=== PATIENT | female | born 1980 | race Caucasian/White ===

== ENCOUNTER 2018-12-21 09:42 | Emergency (ER) | payer OTHER, MEDICAID ==
[~2018-12-21] VITALS: Ht 157.5 cm; Wt 58.5 kg
[~2018-12-21 09:42] MED LIST: IBUPROFEN 200200 M1 PO; ONDANSETRON HCL4 M2 PO; PERCOCET PO; TYLENOL325 MG PO
[2018-12-21 09:48] VITALS: BP 119/70
[2018-12-21 10:13] LABS: ABSOLUTE BASOPHILS 0.1 thou/uL (0.0-0.2); ABSOLUTE LYMPHOCYTES 1.5 thou/uL (0.8-5.3); ABSOLUTE MONOCYTES 0.5 thou/uL (0.0-1.2); ABSOLUTE NEUTROPHILS 5.9 thou/uL (1.6-8.1); BASOPHILS 0.7 %; EOSINOPHILS 0.6 %; HEMATOCRIT 37.5 % (37.0-47.0); HEMOGLOBIN 12.9 gm/dL (12.0-15.0); LYMPHOCYTES 18.8 %; MCH 33.6 pg (26.0-34.0); MCHC 34.3 g/dL (28.0-37.0); MPV 8.1 fl. (7.2-11.1); NUCLEATED RBCS 0 /100WBC; PLATELET COUNT* 206 thou/uL (150-400); POLYS 73.9 %; RBC 3.83 mil/uL (4.20-5.00)
[2018-12-21] MEDS ORDERED: BACTRIM DS TAB1 EACH PO (10:19)
[2018-12-21] MEDS ORDERED: KEFLEX500 M1 PO (10:19)
[2018-12-21] MEDS ORDERED: NORCO 5-325 TA1 EACH PO (10:19)
[2018-12-21 10:27] LABS: ALBUMIN 3.3 g/dL (3.4-5.0); CALCIUM 8.2 mg/dL (8.5-10.1); CREATININE 0.7 mg/dL (0.6-1.3); POTASSIUM 3.6 mmol/L (3.5-5.1); TOTAL BILIRUBIN 0.6 mg/dL (<0.1-1.0); TOTAL PROTEIN 6.6 g/dL (6.4-8.2)
== END 2018-12-21 10:48 | disposition home or self-care (01) ==
LOC: M.ERS 09:42
PROVIDERS: Personal Emergency Response Attendant
DX: N73.2 Unspecified parametritis and pelvic cellulitis (principal); Z88.6 Allergy status to analgesic agent